=== PATIENT | male | born 1960 | race Asian ===

== ENCOUNTER 2018-07-27 06:32 | Day surgery (SDC) | payer OTHER ==
[2018-07-27] MEDS ORDERED: PROPOFOL 20 ML (09:10)
== END 2018-07-27 15:11 | disposition home or self-care (01) ==
LOC: GIL 06:32
DX: Z12.11 Encounter for screening for malignant neoplasm of colon (principal); K64.8 Other hemorrhoids; K57.30 Diverticulosis of large intestine without perforation or abscess without bleeding; I10 Essential (primary) hypertension
CPT/HCPCS: 45378